=== PATIENT | male | born 1980 | race Caucasian/White ===

== ENCOUNTER 2020-08-08 12:05 | Inpatient (IN) | payer MEDICAID, OTHER ==
[2020-08-08 12:56] LABS: Glucose,Whole Blood 243 mg/dL (75-99)
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
[2020-08-08] MEDS ORDERED: FLUTICASONE 50MCG/SPRAY NASAL 16GM EA NOSTRIL PRN (15:42)
[2020-08-08] MEDS ORDERED: LORazepam 1 MG TAB PO PRN (15:53)
[2020-08-08] MEDS ORDERED: MAGNESIUM HYDROXIDE 2,400 MG/10 ML CUP PO PRN (15:53)
[2020-08-08] MEDS ORDERED: MAG HYDROX/AL HYDROX/SIMETH 30 ML CUP PO PRN (15:53)
[2020-08-08] MEDS ORDERED: LORazepam 2 MG/ML INJ IM PRN (15:58)
[2020-08-08] MEDS ORDERED: HALOPERIDOL LACTATE 5 MG/ML 1 ML VIAL IM PRN (15:58)
[2020-08-08] MEDS ORDERED: haloperidoL 5 MG TAB PO PRN (15:58)
[2020-08-08] MEDS ORDERED: INSULIN LISPRO SQ SCH (17:30)
[2020-08-08 17:37] LABS: Glucose,Whole Blood 260 mg/dL (75-99)
[2020-08-08] MEDS: NICOTINE 14MG/24HR PATCH TRANSDERM SCH (17:38)
[2020-08-08] MEDS: INSULIN ASPART (NovoLOG) 100 UNIT/ML VIAL SQ SCH ×2 (17:40→21:30)
--- NOTE | 2020-08-08 19:21 | XR ---
EXAMINATION TYPE: XR hand limited LT DATE OF EXAM: 08/08/2020 COMPARISON: NONE HISTORY: Pain TECHNIQUE: 2 views FINDINGS: Metacarpals are intact. I see no fracture nor dislocation. Joint spaces are normal. There a re no erosions. IMPRESSION: Negative left hand exam.
[2020-08-08 20:05] LABS: Glucose,Whole Blood 283 mg/dL (75-99)
[2020-08-08] MEDS ORDERED: INSULIN DETEMIR (LEVEMIR) 100 UNIT/ML SYR SQ SCH ×2 (21:00)
[2020-08-08] MEDS: GABAPENTIN 100 MG CAP PO SCH (21:23)
[2020-08-09 04:01] LABS: Glucose,Whole Blood 60 mg/dL (75-99)
[2020-08-09 04:38] LABS: Glucose,Whole Blood 141 mg/dL (75-99)
[2020-08-09 08:00] LABS: Glucose,Whole Blood 132 mg/dL (75-99)
[2020-08-09] MEDS: INSULIN ASPART (NovoLOG) 100 UNIT/ML VIAL SQ SCH ×4 (08:07→20:50)
[2020-08-09] MEDS: GABAPENTIN 100 MG CAP PO SCH ×2 (08:36→20:15)
[2020-08-09] MEDS: NICOTINE 14MG/24HR PATCH TRANSDERM SCH (08:36)
[2020-08-09 09:57] LABS: Basophils % (A) 0 %; Eosinophils # (A) 0.1 k/uL (0-0.7); Eosinophils % (A) 1 %; HCT 46.9 % (39.0-53.0); HGB 15.6 gm/dL (13.0-17.5); Lymphocytes # (A) 2.6 k/uL (1.0-4.8); Lymphocytes % (A) 27 %; MCHC 33.3 g/dL (31.0-37.0); MCV 90.1 fL (80.0-100.0); Mean Platelet Volume 6.8; Monocytes # (A) 0.6 k/uL (0-1.0); Monocytes % (A) 6 %; Neutrophils # (A) 6.2 k/uL (1.3-7.7); Neutrophils % (A) 64 %; Platelet Count 308 k/uL (150-450); RDW 12.4 % (11.5-15.5); WBC 9.8 k/uL (3.8-10.6)
[2020-08-09 10:22] LABS: ALT 29 U/L (4-49); AST 27 U/L (17-59); African American GFR (CKD) >90 (>60 ml/min/1.73 sqM); Albumin 4.3 g/dL (3.5-5.0); Alkaline Phosphatase 72 U/L (38-126); Anion Gap 7 mmol/L; Blood Urea Nitrogen 16 mg/dL (9-20); Calcium 9.7 mg/dL (8.4-10.2); Carbon Dioxide 28 mmol/L (22-30); Chloride 101 mmol/L (98-107); Cholesterol 189 mg/dL (<200); Glucose 294 mg/dL (74-99); HDL Cholesterol 42 mg/dL (40-60); LDL Cholesterol,Calculated 108 mg/dL (0-99); Non-African American GFR(CKD) >90 (>60 ml/min/1.73 sqM); Potassium 4.8 mmol/L (3.5-5.1); Sodium 136 mmol/L (137-145); Total Bilirubin 0.5 mg/dL (0.2-1.3); Total Protein 7.4 g/dL (6.3-8.2); Triglycerides 193 mg/dL (<150)
[2020-08-09] MEDS ORDERED: hydrOXYzine pamoate 25 MG CAP PO PRN (10:38)
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
--- NOTE | 2020-08-09 12:26 | P.CONS ---
History of Present Illness - Reason for Consult Patient is admitted for the past and delusions. - History of Present Illness 39-year-old pleasant male admitted to psychiatry floor for acute psychosis. Patient denied any fever chills. to does have type 1 diabetes mellitus blood sugars are bit elevated today but with resolution of his home regimen patient blood sugars have come down patient is visiting here from [place]. Patient denied any fever chills dysuria nausea vomiting. Patient does smoke trying to down smoking present smokes about 10 cigarettes per day. Review of Systems REVIEW OF SYSTEMS: CONSTITUTIONAL: No fever, no malaise, no fatigue. HEENT: No recent visual problems or hearing problems. Denied any sore throat. CARDIOVASCULAR: No chest pain, orthopnea, PND, no palpitations, no syncope. PULMONARY: No shortness of breath, no cough, no hemoptysis. GASTROINTESTINAL: No diarrhea, no nausea, no vomiting, no abdominal pain. NEUROLOGICAL: No headaches, no weakness, no numbness. HEMATOLOGICAL: Denies any bleeding or petechiae. GENITOURINARY: Denies any burning micturition, frequency, or urgency. MUSCULOSKELETAL/RHEUMATOLOGICAL: Denies any joint pain, swelling, or any muscle pain. ENDOCRINE: Denies any polyuria or polydipsia. The rest of the 14-point review of systems is negative. Past Medical History Past Medical History: Diabetes Mellitus, Pneumonia Additional Past Medical History / Comment(s): 11/02/14 Pt presented to [facility] ER with c/o drinking alcohol and then having nausea, vomiiting and abdominal pain and weakness. Pt being admitted with DKA. Other HX: pneumonia at age 12 yrs, fell and had a concussion and R elbow fx approximately 3 yrs ago. L lacerated cornea that healed well. History of Any Multi-Drug Resistant Organisms: None Reported Past Surgical History: Adenoidectomy, Ear Surgery Additional Past Surgical History / Comment(s): tubes in bilaeral ears as child. Past Anesthesia/Blood Transfusion Reactions: No Reported Reaction Past Psychological History: No Psychological Hx Reported Smoking Status: Current every day smoker Past Alcohol Use History: None Reported Past Drug Use History: Marijuana - Past Family History Father Family Medical History: Diabetes Mellitus Mother Family Medical History: No Reported History Medications and Allergies Home Medications Medication Instructions Recorded Confirmed Type Insulin Lispro [humaLOG] See Protocol SQ AC-TID 11/02/14 08/08/20 History Fluticasone Nasal [place] [Flonase 1 spr EA NOSTRIL DAILY PRN 08/08/20 08/08/20 History Nasal [place]] Gabapentin [Neurontin] 100 mg PO BID 08/08/20 08/08/20 History Insulin Glargine,Hum.rec.anlog 34 unit SQ DAILY 08/08/20 08/08/20 History [Basaglar Kwikpen U-100] Simvastatin [Zocor] 5 mg PO HS 08/08/20 08/08/20 History Allergies Allergy/AdvReac Type Severity Reaction Status Date / Time No Known Allergies Allergy Verified 08/08/20 14:58 Physical Exam Vitals: Vital Signs Temp Pulse Pulse Resp BP BP Pulse Ox 08/09/20 07:15 97.2 F L 74 117/70 08/08/20 18:10 98.2 F 84 12 129/78 96 08/08/20 17:51 97.6 F 08/08/20 12:26 98 F 110 H 18 152/102 98 Intake and Output 08/08/20 08/09/20 08/09/20 22:59 06:59 14:59 Other: Weight 64.7 kg PHYSICAL EXAMINATION: GENERAL: The patient is alert and oriented x3, not in any acute distress. Well developed, well nourished. HEENT: Pupils are round and equally reacting to light. EOMI. No scleral icterus. No conjunctival pallor. Normocephalic, atraumatic. No pharyngeal erythema. No thyromegaly. CARDIOVASCULAR: S1 and S2 present. No murmurs, rubs, or gallops. PULMONARY: Chest is clear to auscultation, no wheezing or crackles. ABDOMEN: Soft, nontender, nondistended, normoactive bowel sounds. No palpable organomegaly. MUSCULOSKELETAL: No joint swelling or deformity. EXTREMITIES: No cyanosis, clubbing, or pedal edema. NEUROLOGICAL: Gross neurological examination did not reveal any focal deficits. SKIN: No rashes. Results CBC & Chem 7: 08/09/20 09:33 08/09/20 09:33 Labs: Abnormal Lab Results - Last 24 Hours (Table) 08/08/20 08/08/20 08/08/20 Range/Units 12:54 17:36 20:03 Sodium (137-145) mmol/L Glucose (74-99) mg/dL POC Glucose (mg/dL) 243 H 260 H 283 H (75-99) mg/dL Triglycerides (<150) mg/dL LDL Cholesterol, Calc (0-99) mg/dL 08/09/20 08/09/20 08/09/20 Range/Units 03:58 04:36 07:59 Sodium (137-145) mmol/L Glucose (74-99) mg/dL POC Glucose (mg/dL) 60 L 141 H 132 H (75-99) mg/dL Triglycerides (<150) mg/dL LDL Cholesterol, Calc (0-99) mg/dL 08/09/20 Range/Units 09:33 Sodium 136 L (137-145) mmol/L Glucose 294 H (74-99) mg/dL POC Glucose (mg/dL) (75-99) mg/dL Triglycerides 193 H (<150) mg/dL LDL Cholesterol, Calc 108 H (0-99) mg/dL Assessment and Plan Plan: -Diabetes mellitus: Patient blood sugars are fairly stable now after resumption of his home regimen will just monitor the blood sugars on the same regimen along with sliding scale. -Peripheral neuropathy for which patient is on gabapentin which will be continued -Nicotine use: Counseling was provided -Bipolar disorder with chicho: Management as per primary service.
[2020-08-09 12:43] LABS: Glucose,Whole Blood 200 mg/dL (75-99)
[2020-08-09] MEDS: LITHIUM CARBONATE 300 MG CAP PO SCH ×2 (15:26→20:52)
[2020-08-09 17:44] LABS: Hemoglobin A1C 13.6 % (4.0-6.0)
[2020-08-09 17:51] LABS: Glucose,Whole Blood 259 mg/dL (75-99)
[2020-08-09] MEDS ORDERED: INSULIN ASPART (NovoLOG) 100 UNIT/ML VIAL SQ ONE (18:15)
[2020-08-09] MEDS: ATORVASTATIN 10 MG TAB PO SCH (20:15)
[2020-08-09 20:35] LABS: Glucose,Whole Blood 295 mg/dL (75-99)
[2020-08-09] MEDS: INSULIN DETEMIR (LEVEMIR) 100 UNIT/ML SYR SQ SCH (20:49)
[2020-08-09 23:31] LABS: Glucose,Whole Blood 49 mg/dL (75-99)
[2020-08-10 00:02] LABS: Glucose,Whole Blood 157 mg/dL (75-99)
[2020-08-10 05:21] LABS: Glucose,Whole Blood 59 mg/dL (75-99)
[2020-08-10 05:32] LABS: Glucose,Whole Blood 161 mg/dL (75-99)
[2020-08-10] MEDS ORDERED: INSULIN ASPART (NovoLOG) 100 UNIT/ML VIAL SQ SCH (07:30)
[2020-08-10 07:58] LABS: Glucose,Whole Blood 193 mg/dL (75-99)
[2020-08-10] MEDS: INSULIN ASPART (NovoLOG) 100 UNIT/ML VIAL SQ SCH ×4 (08:10→20:49)
[2020-08-10] MEDS: LITHIUM CARBONATE 300 MG CAP PO SCH ×3 (08:57→21:44)
[2020-08-10] MEDS: GABAPENTIN 100 MG CAP PO SCH ×2 (08:57→20:11)
[2020-08-10] MEDS: NICOTINE 14MG/24HR PATCH TRANSDERM SCH (08:57)
--- NOTE | 2020-08-10 10:14 | P.PN ---
Progress Note - Text Progress Note Date: 08/10/20 Interval History: Patient was seen wandering the hallways and was directable and agreeable to speak with blurb writer in the office. He reports that he had difficulty sleeping last night due to his roommate as well as due to having his blood sugar "crash." He expresses annoyance at staff due to the management of his blood sugar in the use of a glucometer. He is otherwise not reporting any suicidal or homicidal ideation, intention, and/or plan. He continues to endorse racing thoughts and irritability. He is not reporting any auditory or visual hallucinations. He is denying any paranoia or delusions. He's been in adherent with his medication does not report any symptoms and side effects. Currently he is requesting if he can have any medication to help him sleep. The patient has been prescribed Vistaril as needed for insomnia but forgot to take it last night and wants the medications scheduled. Mental Status Exam: General Appearance: Patient appears to be stated age is alert, directable, and cooperative. Patient appears to be disheveled with long unkempt hair. Behavior: Patient is calmly seated without any agitated behavior. Psychomotor activity appears normal today. Speech: Patient's speech is fluent, less pressured, but continues to be hyperverbal. Mood/Affect: Mood is annoyed, affect is congruent and irritable. Suicidality/Homicidality: Patient denies having any suicidal or homicidal ideation intent or plan. Perceptions: Patient denies any visual hallucinations and denies any auditory hallucinations Though content/process: There is no evidence of any delusional thought content and thought process is linear and goal-directed. Memory and concentration: AOX3, grossly intact for the purposes of this session Judgment and insight: Improving mildly Assessment Bipolar 2 disorder, current episode hypomanic Posttraumatic stress disorder Nicotine dependence Plan: -Patient continues to meet criteria for inpatient psychiatric admission for symptom stabilization and safety. Patient has signed adult voluntary form and medication consent and was placed in patient's chart. -Medications: Continue lithium 300 mg by mouth 3 times a day for mood stabilization Continue Vistaril 50 mg by mouth at bedtime for insomnia Continue gabapentin 100 mg by mouth twice a day Start melatonin 5 mg by mouth at bedtime -When necessary Ativan and Haldol for agitation/aggression. -NRT - nicotine patch -SW on board for discharge planning. Encouraged the patient to participate in milieu.
[2020-08-10 12:41] LABS: Glucose,Whole Blood 246 mg/dL (75-99)
[2020-08-10 15:11] VITALS: BMI 21.7
[2020-08-10 17:40] LABS: Glucose,Whole Blood 313 mg/dL (75-99)
[2020-08-10 20:08] LABS: Glucose,Whole Blood 426 mg/dL (75-99)
[2020-08-10 20:10] LABS: Glucose,Whole Blood 429 mg/dL (75-99)
[2020-08-10] MEDS: hydrOXYzine pamoate 25 MG CAP PO SCH (20:11)
[2020-08-10] MEDS: ATORVASTATIN 10 MG TAB PO SCH (20:11)
[2020-08-10] MEDS: MELATONIN 5 MG TABLET PO SCH (20:12)
[2020-08-10] MEDS ORDERED: INSULIN ASPART (NovoLOG) 100 UNIT/ML VIAL SQ ONE (20:48)
[2020-08-10] MEDS: INSULIN DETEMIR (LEVEMIR) 100 UNIT/ML SYR SQ SCH (21:10)
[2020-08-11] MEDS: LITHIUM CARBONATE 300 MG CAP PO SCH ×2 (08:16→21:02)
[2020-08-11] MEDS: NICOTINE 14MG/24HR PATCH TRANSDERM SCH (08:16)
[2020-08-11] MEDS: GABAPENTIN 100 MG CAP PO SCH ×2 (08:16→21:06)
[2020-08-11] MEDS: INSULIN ASPART (NovoLOG) 100 UNIT/ML VIAL SQ SCH ×8 (08:17→20:24)
[2020-08-11 09:28] LABS: African American GFR (CKD) >90 (>60 ml/min/1.73 sqM); Anion Gap 8 mmol/L; Blood Urea Nitrogen 16 mg/dL (9-20); Carbon Dioxide 29 mmol/L (22-30); Chloride 103 mmol/L (98-107); Glucose 201 mg/dL (74-99); Non-African American GFR(CKD) >90 (>60 ml/min/1.73 sqM); Potassium 4.7 mmol/L (3.5-5.1); Sodium 140 mmol/L (137-145)
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
[2020-08-11] MEDS: INSULIN DETEMIR (LEVEMIR) 100 UNIT/ML SYR SQ SCH (20:24)
[2020-08-11] MEDS ORDERED: INSULIN DETEMIR (LEVEMIR) 100 UNIT/ML SYR SQ SCH (21:00)
[2020-08-11] MEDS: ATORVASTATIN 10 MG TAB PO SCH (21:03)
[2020-08-11] MEDS: MELATONIN 5 MG TABLET PO SCH (21:03)
[2020-08-11] MEDS: hydrOXYzine pamoate 25 MG CAP PO SCH (21:04)
[2020-08-12 02:52] LABS: Appearance,Urine Clear (Clear); Bilirubin,Urine Negative (Negative); Blood,Urine Negative (Negative); Color,Urine Light Yellow; Glucose,Urine (UA) 4+ (Negative); Ketones,Urine Negative (Negative); Leukocyte Esterase,Urine Negative (Negative); Nitrite,Urine Negative (Negative); PH, Urine 6.5 (5.0-8.0); Protein,Urine Negative (Negative); Specific Gravity,Urine 1.007 (1.001-1.035); Urobilinogen,Urine <2.0 mg/dL (<2.0)
[2020-08-12] MEDS: LITHIUM CARBONATE 300 MG CAP PO SCH ×2 (08:07→21:05)
[2020-08-12] MEDS: NICOTINE 14MG/24HR PATCH TRANSDERM SCH (08:07)
[2020-08-12] MEDS: GABAPENTIN 100 MG CAP PO SCH ×3 (08:07→21:05)
[2020-08-12] MEDS: INSULIN ASPART (NovoLOG) 100 UNIT/ML VIAL SQ SCH ×8 (08:08→20:29)
[2020-08-12] MEDS: INSULIN DETEMIR (LEVEMIR) 100 UNIT/ML SYR SQ SCH (20:29)
[2020-08-12] MEDS: ATORVASTATIN 10 MG TAB PO SCH (20:38)
[2020-08-12] MEDS: hydrOXYzine pamoate 25 MG CAP PO SCH (21:05)
[2020-08-12] MEDS: MELATONIN 5 MG TABLET PO SCH (21:05)
[2020-08-13] MEDS: LITHIUM CARBONATE 300 MG CAP PO SCH ×2 (08:02→20:49)
[2020-08-13] MEDS: INSULIN ASPART (NovoLOG) 100 UNIT/ML VIAL SQ SCH ×8 (08:02→20:18)
[2020-08-13] MEDS: NICOTINE 14MG/24HR PATCH TRANSDERM SCH (08:02)
[2020-08-13] MEDS: GABAPENTIN 100 MG CAP PO SCH ×3 (08:02→20:49)
[2020-08-13] MEDS ORDERED: INFLUENZA VACCINE (6 MOS+) 60 MCG/0.5 ML SYRINGE IM ONE (13:30)
[2020-08-13] MEDS: ACETAMINOPHEN TAB 325 MG TAB PO PRN ×2 (14:10→21:58)
[2020-08-13] MEDS ORDERED: PNEUMOCOCCAL VACC-PNEUMOVAX 23 25 MCG/0.5 ML VIAL IM ONE (14:13)
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
[2020-08-13] MEDS: INSULIN DETEMIR (LEVEMIR) 100 UNIT/ML SYR SQ SCH (20:14)
[2020-08-13] MEDS: MELATONIN 5 MG TABLET PO SCH (20:49)
[2020-08-13] MEDS: hydrOXYzine pamoate 25 MG CAP PO SCH (20:49)
[2020-08-13] MEDS: ATORVASTATIN 10 MG TAB PO SCH (20:49)
[2020-08-13 23:15] LABS: Urine Alcohol Negative (Negative); Urine Barbiturate Negative (Negative); Urine Cocaine Negative (Negative); Urine Methadone Negative (Negative); Urine Opiates Negative (Negative); Urine Phencyclidine Negative (Negative)
[2020-08-14] MEDS: INSULIN ASPART (NovoLOG) 100 UNIT/ML VIAL SQ SCH ×8 (08:00→20:30)
[2020-08-14] MEDS: NICOTINE 14MG/24HR PATCH TRANSDERM SCH (09:16)
[2020-08-14] MEDS: GABAPENTIN 100 MG CAP PO SCH ×3 (09:16→21:04)
[2020-08-14 09:36] LABS: Glucose,Whole Blood 54 mg/dL (75-99)
[2020-08-14 09:36] LABS: Glucose,Whole Blood 196 mg/dL (75-99)
[2020-08-14 09:36] LABS: Glucose,Whole Blood 361 mg/dL (75-99)
[2020-08-14 09:36] LABS: Glucose,Whole Blood 79 mg/dL (75-99)
[2020-08-14 09:36] LABS: Glucose,Whole Blood 169 mg/dL (75-99)
[2020-08-14 09:37] LABS: Glucose,Whole Blood 186 mg/dL (75-99)
[2020-08-14 09:38] LABS: Glucose,Whole Blood 203 mg/dL (75-99)
[2020-08-14 09:38] LABS: Glucose,Whole Blood 185 mg/dL (75-99)
[2020-08-14 09:39] LABS: Glucose,Whole Blood 238 mg/dL (75-99)
[2020-08-14 09:39] LABS: Glucose,Whole Blood 259 mg/dL (75-99)
[2020-08-14 09:40] LABS: Glucose,Whole Blood 178 mg/dL (75-99)
[2020-08-14 09:41] LABS: Glucose,Whole Blood 231 mg/dL (75-99)
[2020-08-14 09:41] LABS: Glucose,Whole Blood 127 mg/dL (75-99)
[2020-08-14 09:42] LABS: Glucose,Whole Blood 214 mg/dL (75-99)
[2020-08-14 09:42] LABS: Glucose,Whole Blood 50 mg/dL (75-99)
[2020-08-14 09:42] LABS: Glucose,Whole Blood 145 mg/dL (75-99)
[2020-08-14 09:42] LABS: Glucose,Whole Blood 198 mg/dL (75-99)
[2020-08-14 09:42] LABS: Glucose,Whole Blood 145 mg/dL (75-99)
[2020-08-14 09:42] LABS: Glucose,Whole Blood 134 mg/dL (75-99)
[2020-08-14 09:42] LABS: Glucose,Whole Blood 70 mg/dL (75-99)
[2020-08-14 09:42] LABS: Glucose,Whole Blood 76 mg/dL (75-99)
[2020-08-14 09:42] LABS: Glucose,Whole Blood 203 mg/dL (75-99)
[2020-08-14 09:42] LABS: Glucose,Whole Blood 81 mg/dL (75-99)
[2020-08-14 09:42] LABS: Glucose,Whole Blood 167 mg/dL (75-99)
[2020-08-14 09:43] LABS: Glucose,Whole Blood 188 mg/dL (75-99)
[2020-08-14 09:43] LABS: Glucose,Whole Blood 127 mg/dL (75-99)
[2020-08-14] MEDS: LITHIUM CARBONATE 300 MG CAP PO SCH ×2 (11:47→21:06)
[2020-08-14 12:48] LABS: Glucose,Whole Blood 271 mg/dL (75-99)
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
[2020-08-14 17:35] LABS: Glucose,Whole Blood 120 mg/dL (75-99)
[2020-08-14 20:27] LABS: Glucose,Whole Blood 224 mg/dL (75-99)
[2020-08-14] MEDS: INSULIN DETEMIR (LEVEMIR) 100 UNIT/ML SYR SQ SCH (20:28)
[2020-08-14] MEDS: hydrOXYzine pamoate 25 MG CAP PO SCH (21:04)
[2020-08-14] MEDS: ATORVASTATIN 10 MG TAB PO SCH (21:04)
[2020-08-14] MEDS: MELATONIN 5 MG TABLET PO SCH (21:06)
[2020-08-15 00:58] VITALS: BP 136/92; PULSE 87; RESP 16; TEMP 98.5
[2020-08-15 02:24] LABS: Glucose,Whole Blood 59 mg/dL (75-99)
[2020-08-15 02:25] LABS: Glucose,Whole Blood 95 mg/dL (75-99)
[2020-08-15 05:02] LABS: Glucose,Whole Blood 163 mg/dL (75-99)
[2020-08-15 07:55] LABS: Glucose,Whole Blood 165 mg/dL (75-99)
[2020-08-15] MEDS: INSULIN ASPART (NovoLOG) 100 UNIT/ML VIAL SQ SCH ×4 (07:59→12:59)
[2020-08-15] MEDS: NICOTINE 14MG/24HR PATCH TRANSDERM SCH (08:56)
[2020-08-15] MEDS: GABAPENTIN 100 MG CAP PO SCH (08:56)
[2020-08-15] MEDS: LITHIUM CARBONATE 300 MG CAP PO SCH (08:57)
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
--- NOTE | 2020-08-15 11:45 | P.PN ---
Subjective I was titrating the patient's insulin during his hospital physician here. Patient is being discharged today was called the to give recommendations r egarding discharge insulin. Patient is receiving Levemir here which is leading to low blood sugars at nighttime as Levemir has peak in about 4 hours and patient is being discharged on Lantus because of which I don't expect the low blood sugars at nighttime. I recommend to discharge the patient on 30 units of insulin long-acting and patient is on sliding scale patient may need. Pre-meal insulin patient will be referred to quality control lead and patient need to follow with PCP closely and patient can be discharged from my perspective Objective - Vital Signs Vital signs: Vital Signs Temp 98.5 F 08/15/20 00:57 Pulse 87 08/15/20 00:57 Resp 16 08/15/20 00:57 BP 136/92 08/15/20 00:57 Pulse Ox 96 08/14/20 02:10 Intake & Output 08/14/20 08/15/20 08/15/20 18:59 06:59 18:59 Weight 65.6 kg - Labs CBC & Chem 7: 08/09/20 09:33 08/11/20 08:10 Labs: Abnormal Lab Results - Last 24 Hours (Table) 08/14/20 08/14/20 08/14/20 Range/Units 12:37 17:33 20:25 POC Glucose (mg/dL) 271 H 120 H 224 H (75-99) mg/dL 08/15/20 08/15/20 08/15/20 Range/Units 01:59 04:58 07:53 POC Glucose (mg/dL) 59 L 163 H 165 H (75-99) mg/dL Assessment and Plan Plan: -Diabetes mellitus: Recommendations as mentioned above he -Peripheral neuropathy for which patient is on gabapentin which will be continued -Nicotine use: Counseling was provided -Bipolar disorder with chicho: Management as per primary service.
[2020-08-15 12:49] LABS: Glucose,Whole Blood 168 mg/dL (75-99)
== END 2020-08-15 15:04 | disposition home or self-care (01) | DRG 885 ==
LOC: EC 12:05 → 3MHU 15:25
PROVIDERS: ADMIT Psychiatry & Neurology Psychiatry; ATTEND Psychiatry & Neurology Psychiatry
PROC: 3E0234Z Introduction of Serum, Toxoid and Vaccine into Muscle, Percutaneous Approach (ICD-10-PCS; principal; 2020-08-13)
DX: F31.2 Bipolar disorder, current episode manic severe with psychotic features (principal); E10.40 Type 1 diabetes mellitus with diabetic neuropathy, unspecified; Z79.4 Long term (current) use of insulin; F15.11 Other stimulant abuse, in remission; F13.11 Sedative, hypnotic or anxiolytic abuse, in remission; Z23 Encounter for immunization; Z20.828 Contact with and (suspected) exposure to other viral communicable diseases; F43.10 Post-traumatic stress disorder, unspecified; G47.00 Insomnia, unspecified; F12.10 Cannabis abuse, uncomplicated; F10.11 Alcohol abuse, in remission; F17.210 Nicotine dependence, cigarettes, uncomplicated; Z71.6 Tobacco abuse counseling; Z79.899 Other long term (current) drug therapy; Z87.01 Personal history of pneumonia (recurrent); Z87.81 Personal history of (healed) traumatic fracture; Z87.820 Personal history of traumatic brain injury; Z62.810 Personal history of physical and sexual abuse in childhood; Z86.69 Personal history of other diseases of the nervous system and sense organs; Z90.89 Acquired absence of other organs; Z59.0 Homelessness; Z98.890 Other specified postprocedural states; Z83.3 Family history of diabetes mellitus; Z81.1 Family history of alcohol abuse and dependence
CPT/HCPCS: 36415; 80048; 80053; 80061; 80178; 80306; 81003; 82075; 83036; 84443; 84550; 85025; 87635; 90732; 99285

== ENCOUNTER → 2021-07-07 | Outpatient (CLI) | payer OTHER ==
--- NOTE | 2021-07-07 17:49 | CT ---
EXAMINATION TYPE: CT sinus wo con DATE OF EXAM: 07/07/2021 COMPARISON: NONE HISTORY: SINUSITIS per order. CT DLP: 429 mGycm. Automated Exposure Control for Dose Reduction was Utilized. TECHNIQUE: CT scan of the sinuses is performed without contrast, axial images are obtained, coronal r eformatted images are also reviewed. FINDINGS: Mild mucosal thickening involving the small caliber left sphenoid sinus anteriorly. Mild mu cosal thickening involving anterior ethmoid sinuses. No suspicious opacification or air-fluid levels in the paranasal sinuses The ostiomeatal complex is narrowed bilaterally and the coronal images due t o antral mucosal thickening but remains patent. Nasal septum is deviated to right of midline. Visualized portion of mastoid air cells show no abnormal opacification. The globes are intact bilate rally. Visualized portion of brain parenchyma is unremarkable. IMPRESSION: No acute sinusitis currently.
== END ==
LOC: RADCTMAIN 07-03 16:39
PROVIDERS: ATTEND Otolaryngology Plastic Surgery within the Head & Neck
DX: J34.89 Other specified disorders of nose and nasal sinuses (principal)
CPT/HCPCS: 70486